=== PATIENT | male | born 1985 | race Caucasian/White ===

== ENCOUNTER 2016-06-19 17:23 | Emergency (ER) | payer OTHER ==
[2016-06-19 17:28] VITALS: BP 124/78; PULSE 78; TEMP 97.9; BMI 23.3
[2016-06-19] MEDS ORDERED: IBUPROFEN 600 MG TABLET (FP) PO ONE (18:03)
[2016-06-19] MEDS: IBUPROFEN 600 MG TABLET (FP) PO ONE (18:05)
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
== END 2016-06-19 18:24 | disposition home or self-care (01) ==
LOC: JERFT 17:23
PROC: 2W3CXYZ Immobilization of Right Lower Arm using Other Device (ICD-10-PCS; principal; 2016-06-19)
DX: S63.501A Unspecified sprain of right wrist, initial encounter (principal); X50.0XXA Overexertion from strenuous movement or load, initial encounter; Y93.71 Activity, boxing; Y92.89 Other specified places as the place of occurrence of the external cause; Y99.0 Civilian activity done for income or pay
CPT/HCPCS: 73110-TC-RT; 73130-TC-RT; 99281-25

== ENCOUNTER 2017-06-02 17:27 | Emergency (ER) | payer OTHER ==
[2017-06-02 17:39] VITALS: BP 132/80; PULSE 118; TEMP 98.9; BMI 24.3
[2017-06-02] MEDS ORDERED: DIPHTH,PERTUSS(ACELL),TET 0.5 ML DISP.SYRIN IM ONE (19:08)
[2017-06-02] MEDS ORDERED: BACITRACIN 15 GM TUBE TOPICAL OINTMENT TP ONE (19:08)
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
== END 2017-06-02 19:42 | disposition home or self-care (01) ==
LOC: JERFT 17:27 → JER 17:27 → JERFT 19:42
PROC: 3E0234Z Introduction of Serum, Toxoid and Vaccine into Muscle, Percutaneous Approach (ICD-10-PCS; principal; 2017-06-02)
DX: S69.81XA Other specified injuries of right wrist, hand and finger(s), initial encounter (principal); S80.212A Abrasion, left knee, initial encounter; S80.211A Abrasion, right knee, initial encounter; W18.39XA Other fall on same level, initial encounter; Y35.811A Legal intervention involving manhandling, law enforcement official injured, initial encounter; Y93.89 Activity, other specified; Y92.89 Other specified places as the place of occurrence of the external cause; Y99.0 Civilian activity done for income or pay
CPT/HCPCS: 90715; 99281-25

== ENCOUNTER 2018-11-29 18:03 | Emergency (ER) | payer OTHER ==
[2018-11-29 18:08] VITALS: BP 132/88; PULSE 92; TEMP 98; BMI 25.6
[2018-11-29] MEDS ORDERED: EMTRICITABINE 200MG/TENOFOVIR 300MG PO ONE (18:54)
[2018-11-29] MEDS ORDERED: TETANUS AND DIPHTHERIA TOXOID 0.5 ML DISP.SYRIN IM ONE (18:54)
[2018-11-29] MEDS ORDERED: RALTEGRAVIR POTASSIUM 400 MG TAB PO ONE (18:54)
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
[2018-11-29] MEDS ORDERED: DIPHTH,PERTUSS(ACELL),TET 0.5 ML DISP.SYRIN IM ONE (19:50)
[2018-11-29 19:54] LABS: BASO % 0.4 % (0-2.0); EOS % 1.2 % (0-4.5); HEMOGLOBIN 15.3 GM/dL (11.7-16.9); MCH 34.1 pg (25.7-33.7); MCHC 34.7 g/dl (32.0-35.9); MEAN CELL VOLUME 98.4 fl (80-96); NEUT % 69.4 % (42.8-82.8); PLATELET COUNT 206 K/MM3 (134-434); RBC 4.47 M/mm3 (4.00-5.60); WHITE BLOOD COUNT 7.8 K/mm3 (4.0-10.0)
[2018-11-29] MEDS ORDERED: HIV POST EXPOSURE PROPHYLAXIS KIT PO ONE (19:57)
[2018-11-29 20:29] LABS: ALBUMIN 4.1 g/dl (3.4-5.0); BILIRUBIN,TOTAL 0.6 mg/dL (0.2-1); BLOOD UREA NITROGEN 12.2 mg/dL (7-18); CALCIUM 9.4 mg/dL (8.5-10.1); CREATININE 0.8 mg/dL (0.55-1.3); PHOSPHOROUS 3.6 mg/dL (2.5-4.9); POTASSIUM 3.7 mmol/L (3.5-5.1); TOT PROT 6.9 g/dl (6.4-8.2); URIC ACID 4.8 mg/dL (2.6-7.2)
== END 2018-11-29 20:02 | disposition home or self-care (01) ==
LOC: JERFT 18:03
PROC: 3E0234Z Introduction of Serum, Toxoid and Vaccine into Muscle, Percutaneous Approach (ICD-10-PCS; principal; 2018-11-29)
DX: Z77.21 Contact with and (suspected) exposure to potentially hazardous body fluids (principal); S60.512A Abrasion of left hand, initial encounter; S60.511A Abrasion of right hand, initial encounter; Y35.811A Legal intervention involving manhandling, law enforcement official injured, initial encounter; Y93.89 Activity, other specified; Y92.89 Other specified places as the place of occurrence of the external cause; Y99.0 Civilian activity done for income or pay
CPT/HCPCS: 36415; 80053; 82465; 82977; 83615; 84100; 84478; 84550; 85025; 86317; 86704; 86706; 86803; 87340; 87389; 99282-25

== ENCOUNTER 2019-12-25 00:01 | Emergency (ER) | payer OTHER ==
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
[2019-12-25 00:06] VITALS: BMI 25.6
--- OUTSIDE RECORDS SUMMARY | 2019-12-25 00:24 | XMS ---
:1985 Author Organization [facility] Support Name Relationship Address Phone [facility] Unavailable [address] [place] [place] [address] Re-disclosure Warning The records that you are about to access may contain information from federally- assisted alcohol or drug abuse programs. If such information is present, then the following federally mandated warning applies: This information has been disclosed to you from records protected by federal confidentiality rules (42 CFR part 2). The federal rules prohibit you from making any further disclosure of this information unless further disclosure is expressly permitted by the written consent of the person to whom it pertains or as otherwise permitted by 42 CFR part 2. A general authorization for the release of medical or other information is NOT sufficient for this purpose. The Federal rules restrict any use of the information to criminally investigate or prosecute any alcohol or drug abuse patient.The records that you are about to access may contain highly sensitive health information, the redisclosure of which is protected by Article 27-F of the [facility] Public Health law. If you continue you may haveaccess to information: Regarding HIV / AIDS; Provided by facilities licensed or operated by the [facility] Office of Mental Health; or Provided by the [facility] Office for People With Developmental Disabilities. If such information is present, then the following [facility] mandated warning applies: This information has been disclosed to you from confidential records which are protected by state law. State law prohibits you from making any further disclosure of this information without the specific written consent of the person to whom it pertains, or as otherwise permitted by law. Any unauthorized further disclosure in violation of state law may result in a fine or detention sentence or both. A general authorization for the release of medical or other information is NOT sufficient authorization for further disclosure. Insurance Providers Payer name Policy type Policy ID Covered Covered republican's Policy P stevie / Coverage republican ID relationship to [employer] Inf ormation type dunn SELF PAY INSURANCE [facility] [id number] [employer] R[employer] [id number] SP [id number] MANAGEMENT [employer] [id number] SP [id number] MANAGEMENT
[2019-12-25 00:26] VITALS: BP 116/78; PULSE 88; TEMP 98.2
== END 2019-12-25 00:35 | disposition home or self-care (01) ==
LOC: FER 00:01
DX: S50.311A Abrasion of right elbow, initial encounter (principal); S60.512A Abrasion of left hand, initial encounter
CPT/HCPCS: 99282-25

== ENCOUNTER 2023-04-30 04:00 | Emergency (ER) | payer OTHER ==
[2023-04-30 04:17] VITALS: BP 132/80; PULSE 102; RESP 16; TEMP 97.9; BMI 29.3
== END 2023-04-30 05:34 | disposition home or self-care (01) ==
LOC: JER 04:00
DX: S60.412A Abrasion of right middle finger, initial encounter (principal); S60.416A Abrasion of right little finger, initial encounter; S80.212A Abrasion, left knee, initial encounter; S69.91XA Unspecified injury of right wrist, hand and finger(s), initial encounter; M79.641 Pain in right hand; M25.562 Pain in left knee; R20.2 Paresthesia of skin; R20.0 Anesthesia of skin; Y04.0XXA Assault by unarmed brawl or fight, initial encounter; Y93.89 Activity, other specified
CPT/HCPCS: 73130-TC-RT-FY; 99283-25